=== PATIENT | male | born 1975 ===

== ENCOUNTER 2019-04-07 07:22 | Day surgery (SDC) | payer OTHER ==
[2019-04-07] MEDS ORDERED: PERCOCET 5-3251 EACH PO (09:21)
[2019-04-07] MEDS ORDERED: RECTICARE30 GM TOP (09:22)
== END 2019-04-07 15:50 | disposition home or self-care (01) ==
LOC: CIR.AMB 07:22
DX: K60.1 Chronic anal fissure (principal); K62.4 Stenosis of anus and rectum